=== PATIENT | female | born 1980 | race Two or more races ===

== ENCOUNTER 2020-12-08 13:13 | Emergency (ER) | payer MEDICAID ==
[~2020-12-08] VITALS: Ht 154.9 cm; Wt 77.1 kg
[2020-12-08] MEDS ORDERED: SUMAtriptan SUCCINATE 25 MG TAB PO ONE (17:00)
[2020-12-08 17:26] VITALS: BP 132/67
== END 2020-12-08 17:50 | disposition home or self-care (01) ==
LOC: ER 13:13
DX: G43.909 Migraine, unspecified, not intractable, without status migrainosus (principal)
CPT/HCPCS: 70450

== ENCOUNTER 2021-02-02 10:20 | Emergency (ER) | payer MEDICAID ==
[~2021-02-02] VITALS: Ht 154.9 cm; Wt 79.4 kg
[2021-02-02 14:36] VITALS: BP 143/87
== END 2021-02-02 14:38 | disposition home or self-care (01) ==
LOC: ER 10:20
DX: U07.1 COVID-19 (principal); Z88.1 Allergy status to other antibiotic agents
CPT/HCPCS: 93005

== ENCOUNTER 2024-03-28 12:39 | Emergency (ER) | payer MEDICAID ==
[~2024-03-28] VITALS: Ht 154.9 cm; Wt 104.5 kg
[2024-03-28 13:23] VITALS: BP 137/37; PULSE 91; RESP 16; TEMP 97.8; O2SAT 96
[2024-03-28] MEDS: ACETAMINOPHEN 500 MG TAB PO ONE (13:57)
[2024-03-28] MEDS ORDERED: METH-1182 PO (14:55)
[2024-03-28] MEDS ORDERED: IBUP-1456 PO (14:55)
== END 2024-03-28 15:05 | disposition home or self-care (01) ==
LOC: EDBD 12:39 → EDUNIT# 12:39 → ER 12:41
DX: S83.8X2A Sprain of other specified parts of left knee, initial encounter (principal); S76.012A Strain of muscle, fascia and tendon of left hip, initial encounter; Z98.890 Other specified postprocedural states; Z88.5 Allergy status to narcotic agent; V89.2XXA Person injured in unspecified motor-vehicle accident, traffic, initial encounter; Y93.89 Activity, other specified; Y92.89 Other specified places as the place of occurrence of the external cause; Y99.8 Other external cause status
CPT/HCPCS: 73502; 73562